=== PATIENT | female | born 1955 | race Caucasian/White ===

== ENCOUNTER 2019-03-21 17:56 | Inpatient (IN) | payer OTHER ==
[~2019-03-21] VITALS: Ht 157.5 cm; Wt 59.9 kg
[~2019-03-21 17:56] MED LIST: ESCI10TA PO; OMEG-166 PO
[2019-03-21] MEDS ORDERED: ONDANSETRON ODT 4 MG TAB.RAPDIS ONE (18:25)
[2019-03-21] MEDS ORDERED: ONDANSETRON ODT 4 MG TAB.RAPDIS SL ONE (18:30)
--- NOTE | 2019-03-21 18:33 | NUR ---
Dr Bustos at the bedside for MSE.
[2019-03-21] MEDS ORDERED: IV NORMAL SALINE 1000 ML BAG IV ONE (18:45)
[2019-03-21 18:49] LABS: BASOPHILS % (AUTO) 0.2 % (0.0-2.0); EOSINOPHILS # (AUTO) 0.2 K/uL (0.0-0.7); HEMATOCRIT 45.6 % (31.2-41.9); HEMOGLOBIN 15.3 g/dL (10.9-14.3); LYMPHOCYTES # (AUTO) 0.5 K/uL (20.0-40.0); MEAN CORPUSCULAR HEMOGLOBIN 31.7 uug (24.7-32.8); MEAN CORPUSCULAR HGB CONC 34 g/dL (32.3-35.6); MEAN CORPUSCULAR VOLUME 94.8 fL (75.5-95.3); MONOCYTES # (AUTO) 0.3 K/uL (2.0-10.0); MONOCYTES % (AUTO) 3.1 % (0.0-11.0); NEUTROPHILS # (AUTO) 7.5 K/uL (1.8-8.9); NEUTROPHILS % (AUTO) 88.7 % (38.5-71.5); PLATELET COUNT (AUTO) 210 K/uL (179-408); RED BLOOD CELL COUNT(AUTO) 4.81 MIL/uL (3.63-4.92); WHITE BLOOD COUNT (AUTO) 8.5 K/uL (3.8-11.8)
[2019-03-21 19:06] LABS: BILIRUBIN,DIRECT 0.1 mg/dL (0.0-0.2); BILIRUBIN,TOTAL 0.6 mg/dL (0.2-1.0); CREATININE 0.8 mg/dL (0.6-1.3); POTASSIUM 3.5 mmol/L (3.5-5.1); TOTAL PROTEIN, SERUM 7.5 g/dL (6.4-8.2)
--- NOTE | 2019-03-21 19:06 | NUR ---
aSSUMED CARE OF PATIENT. NO ACUTE DISTRESS NOTED. vSS
[2019-03-21] MEDS ORDERED: DICYCLOMINE HCL LIQ 10 MG/5 ML UDC ONE (19:50)
[2019-03-21 20:00] VITALS: BP 135/70
[2019-03-21] MEDS ORDERED: DICYCLOMINE HCL 20 MG TABLET PO ONE (20:00)
[2019-03-21] MEDS ORDERED: DICYCLOMINE HCL LIQ 10 MG/5 ML UDC PO ONE (20:00)
[2019-03-21] MEDS: MAGNESIUM SULFATE/D5W 100 ML IV SCH ×2 (20:32→21:37)
--- NOTE | 2019-03-21 20:47 | NUR ---
MARIANO NOVAK AT BEDSIDE FOR PATIENT EVALUATION.
[2019-03-21] MEDS ORDERED: OSELTAMIVIR PHOSPHATE 75 MG CAPSULE PO ONE (21:00)
[2019-03-21] MEDS ORDERED: IV NORMAL SALINE 100 ML BAG IV ONE (21:00)
[2019-03-21] MEDS ORDERED: ONDANSETRON 4 MG/2 ML VIAL IV ONE (21:00)
[2019-03-21] MEDS ORDERED: ACETAMINOPHEN ES 500 MG TABLET PO ONE (21:00)
[2019-03-21] MEDS ORDERED: CIPROFLOXACIN IV 400 MG in PREMIXED 1 EACH IV SCH (21:00)
[2019-03-21] MEDS ORDERED: METRONIDAZOLE 500 MG/NS 100 ML PIGGYBACK IV ONE (21:00)
[2019-03-21] MEDS ORDERED: IV NS 1000 ML 1,000 ML IV ONE (21:30)
--- NOTE | 2019-03-21 21:39 | NUR ---
Pt. admitted to [facility] , under care of Dr. HIDALGO. REPORT TO FARHEEN BANDA. IV ABX THERAPY ENDORSED TO INPATIENT UNIT. Belongs List completed
[2019-03-21 21:45] VITALS: BP 135/70
--- NOTE | 2019-03-21 21:45 | NUR ---
RECEIVED PT FROM ER VIA [facility]. UNDER THE CARE OF DR. HIDALGO. DX: DIARRHEA AND FEBRILE. ADMISSION PROCESS AND CARE PLAN INITIATED. SAFETY AND COMFORT PROVIDED. [facility] ASSESSMENT DONE. FAMILY AT BEDSIDE. WILL CONTINUE TO MONITOR.
[2019-03-21] MEDS ORDERED: METRONIDAZOLE 500 MG/NS 100ML 100 ML IV ONE (22:11)
[2019-03-21] MEDS ORDERED: HYDROCODONE/APAP 5-325MG TABLET PO PRN (22:45)
[2019-03-21] MEDS ORDERED: ONDANSETRON 4 MG/2 ML VIAL IV PRN (22:45)
[2019-03-21] MEDS ORDERED: MAGNESIUM HYDROXIDE 30 ML LIQUID UDC PO PRN (22:45)
[2019-03-21] MEDS ORDERED: ZOLPIDEM 5 MG TABLET PO PRN (22:45)
[2019-03-21] MEDS ORDERED: Z GUARD REMEDY PASTE 57 GM TUBE TOP PRN (22:45)
--- NOTE | 2019-03-21 22:45 | NUR ---
FIELD TALENT QUALIFICATION SPECIALIST ORDERED ATIVAN 1MG Q6H PRN IV PER PATIENT AND FAMILY REQUEST BECAUSE PT HAD PANIC ATTACKS . PT IN NO ACUTE DISTRESS.
[2019-03-21] MEDS: ACETAMINOPHEN 325 MG TABLET PO PRN (22:50)
[2019-03-21] MEDS: IV NS 1000 ML 1,000 ML IV PRN (22:53)
[2019-03-22] MEDS ORDERED: METRONIDAZOLE 500 MG/NS 100ML 100 ML IV ONE (02:15)
[2019-03-22 05:00] VITALS: BP 122/65
[2019-03-22] MEDS: METRONIDAZOLE 500 MG/NS 100ML 500 MG in PREMIXED 1 EACH IV SCH ×3 (05:15→22:30)
--- NOTE | 2019-03-22 05:53 | NUR ---
PT SLEPT INTERMITTENTLY. PT IN NO ACUTE DISTRESS. PRESCRIBED MEDICATION GIVEN AND PT TOLERATED IT WELL. COOLING MEASURES AND TYLENOL WAS GIVEN FOR PREVIOUS TEMPERATURE OF 100.3. DR SENIOR HEALTH PHYSICS TECHNICIAN AWARE. NOW PT AFEBRILE. SAFETY AND COMFORT PROVIDED. ALL NEEDS ARE MET. WILL ENDORSE TO INCOMING NURSE FOR CONTINUITY OF CARE.
[2019-03-22 07:11] LABS: BASOPHILS % (AUTO) 0.3 % (0.0-2.0); EOSINOPHILS # (AUTO) 0.1 K/uL (0.0-0.7); EOSINOPHILS % (AUTO) 1.2 % (0.0-7.0); HEMATOCRIT 37.6 % (31.2-41.9); HEMOGLOBIN 12.8 g/dL (10.9-14.3); LYMPHOCYTES # (AUTO) 0.5 K/uL (20.0-40.0); LYMPHOCYTES % (AUTO) 7.7 % (20.5-51.5); MEAN CORPUSCULAR HEMOGLOBIN 31.7 uug (24.7-32.8); MEAN CORPUSCULAR HGB CONC 34 g/dL (32.3-35.6); MEAN CORPUSCULAR VOLUME 93.3 fL (75.5-95.3); MONOCYTES # (AUTO) 0.6 K/uL (2.0-10.0); MONOCYTES % (AUTO) 9.1 % (0.0-11.0); NEUTROPHILS # (AUTO) 5.3 K/uL (1.8-8.9); NEUTROPHILS % (AUTO) 81.7 % (38.5-71.5); PLATELET COUNT (AUTO) 185 K/uL (179-408); RED BLOOD CELL COUNT(AUTO) 4.03 MIL/uL (3.63-4.92); WHITE BLOOD COUNT (AUTO) 6.5 K/uL (3.8-11.8)
[2019-03-22 07:23] LABS: CREATININE 0.7 mg/dL (0.6-1.3); MAGNESIUM 1.7 mg/dL (1.8-2.4); PHOSPHOROUS 3.1 mg/dL (2.5-4.9); POTASSIUM 3.4 mmol/L (3.5-5.1)
--- NOTE | 2019-03-22 07:30 | NUR ---
Patient calm and comfortable upon initial assessment; Patient with no signs of distress; patient will continue to be monitored.
[2019-03-22] MEDS: PANTOPRAZOLE SODIUM 40 MG VIAL IV SCH (08:51)
[2019-03-22] MEDS: OMEGA-3 FATTY ACIDS/FISH OIL CAPSULE PO SCH ×2 (08:51→20:39)
[2019-03-22] MEDS: ESCITALOPRAM OXALATE 10 MG TABLET PO SCH (08:51)
[2019-03-22] MEDS: CIPROFLOXACIN IV 400 MG in PREMIXED 1 EACH IV SCH ×2 (08:51→20:33)
[2019-03-22 11:47] VITALS: BP 120/85
[2019-03-22] MEDS: IV NS 1000 ML 1,000 ML IV PRN (13:18)
[2019-03-22] MEDS ORDERED: POTASSIUM CHLORIDE 20 MEQ TAB.PRT.SR PO ONE (14:30)
[2019-03-22] MEDS: MAGNESIUM SULFATE/D5W 100 ML IV SCH ×2 (15:07→17:57)
[2019-03-22 15:33] VITALS: BP 109/55
--- NOTE | 2019-03-22 18:21 | NUR ---
Patient calm and comfortable through out shift with no signs of distress; patient medication compliant ; patient could not produce stool sample ; patient notified importance of stool sample and to leave stool in hat provided; patient verbalized understanding ;patient requested iv to be replaced on hand as ac area causing pain ; iv changed . Patient educated on diagnosis ; patient verbalized understanding. Patient at family bedside.
--- NOTE | 2019-03-22 19:30 | NUR ---
RECEIVED PT AWAKE, ALERT AND ORIENTEDX4. PT IN NO ACUTE DISTRESS. IV INTACT. FAMILY AT BEDSIDE. SAFETY AND COMFORT PROVIDED. WILL CONTINUE TO MONITOR.
[2019-03-22 20:01] VITALS: BP 131/68
[2019-03-22] MEDS ORDERED: LORATADINE 10 MG TABLET PO PRN ×2 (21:00→21:15)
[2019-03-22] MEDS: LORAZEPAM 2 MG/1 ML VIAL IV PRN (22:30)
[2019-03-22] MEDS: ACETAMINOPHEN 325 MG TABLET PO PRN (22:50)
[2019-03-23] MEDS: IV NS 1000 ML 1,000 ML IV PRN ×2 (02:40→12:16)
[2019-03-23 04:07] VITALS: BP 115/64
[2019-03-23] MEDS: METRONIDAZOLE 500 MG/NS 100ML 500 MG in PREMIXED 1 EACH IV SCH ×3 (05:36→22:00)
[2019-03-23 06:29] LABS: BASOPHILS % (AUTO) 0.4 % (0.0-2.0); EOSINOPHILS # (AUTO) 0.2 K/uL (0.0-0.7); EOSINOPHILS % (AUTO) 3.2 % (0.0-7.0); HEMATOCRIT 33.8 % (31.2-41.9); HEMOGLOBIN 11.7 g/dL (10.9-14.3); LYMPHOCYTES # (AUTO) 1.9 K/uL (20.0-40.0); LYMPHOCYTES % (AUTO) 35.1 % (20.5-51.5); MEAN CORPUSCULAR HEMOGLOBIN 32.7 uug (24.7-32.8); MEAN CORPUSCULAR HGB CONC 35 g/dL (32.3-35.6); MEAN CORPUSCULAR VOLUME 94.7 fL (75.5-95.3); MONOCYTES # (AUTO) 0.6 K/uL (2.0-10.0); MONOCYTES % (AUTO) 10.9 % (0.0-11.0); NEUTROPHILS # (AUTO) 2.7 K/uL (1.8-8.9); NEUTROPHILS % (AUTO) 50.4 % (38.5-71.5); PLATELET COUNT (AUTO) 160 K/uL (179-408); RED BLOOD CELL COUNT(AUTO) 3.57 MIL/uL (3.63-4.92); WHITE BLOOD COUNT (AUTO) 5.4 K/uL (3.8-11.8)
--- NOTE | 2019-03-23 06:32 | NUR ---
ATIVAN GIVEN AT 2230H FOR PT AGITATED. PT TOLERATED IT WELL. SAFETY AND COMFORT PROVIDED. WILL CONTINUE TO MONITOR. DR. HIDALGO ORDERED CLARITIN 10MG QD PER PT REQUEST FOR ALLERGIC REACTION. PT SLEPT INTERMITTENTLY. FAMILY AT BEDSIDE. PT SHOWS NO SIGNS OF ACUTE DISTRESS. PT REQUESTING FOR STOOL SOFTENER BECAUSE SHE DIDN'T HAVE BOWEL MOVEMENT LAST NIGHT. SHE WANTS IT FOR COLLECTION OF STOOL CULTURE NEEDED. WEIGH BOSS AWARE . IV INTACT. PRESCRIBED MEDICATION GIVEN AND PT TOLERATED IT WELL. SAFETY AND COMFORT PROVIDED. WILL ENDORSE TO INCOMING NURSE FOR CONTINUITY OF CARE.
[2019-03-23 06:40] LABS: CREATININE 0.7 mg/dL (0.6-1.3); MAGNESIUM 1.9 mg/dL (1.8-2.4); POTASSIUM 3.6 mmol/L (3.5-5.1)
[2019-03-23] MEDS: ACETAMINOPHEN 325 MG TABLET PO PRN (08:35)
[2019-03-23] MEDS: OMEGA-3 FATTY ACIDS/FISH OIL CAPSULE PO SCH ×2 (08:36→20:24)
[2019-03-23] MEDS: PANTOPRAZOLE SODIUM 40 MG VIAL IV SCH (08:36)
[2019-03-23] MEDS: ESCITALOPRAM OXALATE 10 MG TABLET PO SCH (08:36)
[2019-03-23] MEDS: CIPROFLOXACIN IV 400 MG in PREMIXED 1 EACH IV SCH ×2 (08:47→20:23)
[2019-03-23 11:33] VITALS: BP 125/79
[2019-03-23 15:18] LABS: *BILIRUBIN,URIN NEGATIVE (NEGATIVE); *BLOOD, URINE 1+ (NEGATIVE); *CLARITY,URINE CLEAR (CLEAR); *COLOR,URINE YELLOW (YELLOW); *KETONES,URINE NEGATIVE (NEGATIVE); *UROBILINOGEN,URINE 0.2 E.U./dl (NORMAL); LEUKOCYTE ESTERASE ,URINE TRACE (NEGATIVE); NITRITE, URINE NEGATIVE (NEGATIVE); PH,URINE 5.5 (5.0-8.0); UGLUCOSE NEGATIVE (NEGATIVE)
[2019-03-23 15:25] LABS: MUCUS,URINE FEW /LPF (0-FEW); SQUAMOUS EPITHELIAL CELL,UR MODERATE /HPF (NONE SEEN)
[2019-03-23 15:50] VITALS: BP 133/74
--- NOTE | 2019-03-23 17:14 | NUR ---
Patient alert and oriented, ambulatory independent. Fever of 99.9 beginning of shift, PRN tylenol given which resolved fever down to 98.2. Continues on clear liquid diet. RUQ pain/discomfort, US of gallbladder ordered. Stool sample collected and sent today. Urine sent to lab. Continues on flagyl and cipro antibiotic. Continuous IV fluids. Gallbladder US pending, tech states it will be done tomorrow.
--- NOTE | 2019-03-23 19:30 | NUR ---
RECEIVED PT AWAKE, ALERT AND ORIENTEDX4. PT SHOWS NO SIGNS OF ACUTE DISTRESS. AT BEDSIDE. SAFETY AND COMFORT PROVIDED. WILL CONTINUE TO MONITOR.
[2019-03-23 20:05] VITALS: BP 168/78
[2019-03-23] MEDS: LORAZEPAM 2 MG/1 ML VIAL IV PRN (20:24)
[2019-03-23 22:30] VITALS: BP 136/78
[2019-03-24 04:00] VITALS: BP 145/68
[2019-03-24] MEDS: ACETAMINOPHEN 325 MG TABLET PO PRN ×2 (04:40→10:46)
[2019-03-24] MEDS: METRONIDAZOLE 500 MG/NS 100ML 500 MG in PREMIXED 1 EACH IV SCH ×2 (05:09→13:59)
--- NOTE | 2019-03-24 06:27 | NUR ---
PT SLEPT INTERMITTENTLY. PT IN NO ACUTE DISTRESS. IV INTACT. PRESCRIBED MEDICATION GIVEN AND PT TOLERATED IT WELL. ATIVAN GIVEN AT 2023H FOR PT BEING ANXIOUS AND ZOFRAN 2023H FOR NAUSEOUS. PT TOLERATED IT WELL.SAFETY AND COMFORT PROVIDED. WILL ENDORSE TO INCOMING NURSE FOR CONTINUITY OF CARE.
--- NOTE | 2019-03-24 06:33 | NUR ---
PT HAD 100.2 TEMP. COOLING MEASURESD AND TYLENOL GIVEN. RECENT TEMP IS 97.5. PT IN NO ACUTE DISTRESS. SAFETY PROVIDED. WILL ENDORSE.
[2019-03-24] MEDS ORDERED: PANTOPRAZOLE SODIUM 40 MG TABLET.DR PO SCH (07:00)
[2019-03-24 07:31] LABS: BILIRUBIN,TOTAL 0.4 mg/dL (0.2-1.0); CREATININE 0.8 mg/dL (0.6-1.3); MAGNESIUM 1.5 mg/dL (1.8-2.4); PHOSPHOROUS 3.4 mg/dL (2.5-4.9); POTASSIUM 3.4 mmol/L (3.5-5.1)
[2019-03-24 07:32] LABS: BASOPHILS % (AUTO) 0.3 % (0.0-2.0); EOSINOPHILS % (AUTO) 0.4 % (0.0-7.0); HEMATOCRIT 34.3 % (31.2-41.9); HEMOGLOBIN 11.8 g/dL (10.9-14.3); LYMPHOCYTES # (AUTO) 1.2 K/uL (20.0-40.0); LYMPHOCYTES % (AUTO) 13.5 % (20.5-51.5); MEAN CORPUSCULAR HEMOGLOBIN 32.6 uug (24.7-32.8); MEAN CORPUSCULAR HGB CONC 34 g/dL (32.3-35.6); MEAN CORPUSCULAR VOLUME 94.8 fL (75.5-95.3); MONOCYTES # (AUTO) 0.7 K/uL (2.0-10.0); MONOCYTES % (AUTO) 7.8 % (0.0-11.0); NEUTROPHILS # (AUTO) 7.1 K/uL (1.8-8.9); PLATELET COUNT (AUTO) 175 K/uL (179-408); RED BLOOD CELL COUNT(AUTO) 3.61 MIL/uL (3.63-4.92)
[2019-03-24 07:42] LABS: WHITE BLOOD COUNT (AUTO) 9.1 K/uL (3.8-11.8)
--- NOTE | 2019-03-24 08:00 | NUR ---
PATIENT RESTING COMFORTABLY IN BED AT THIS TIME. IVF RUNNING. WILL KEEP PATIENT NPO AT THIS TIME DUE TO GALLBLADDER ULTRASOUND ORDERED - WILL NOTIFY PATIENT. AFEBRILE AT THIS TIME. NO SIGNS OF DISTRESS. SAFETY MEASURES IMPLEMENTED, CALL LIGHT WITHIN REACH OF PATIENT. WILL CONTINUE TO MONITOR THROUGHOUT SHIFT.
[2019-03-24] MEDS: OMEGA-3 FATTY ACIDS/FISH OIL CAPSULE PO SCH (08:41)
[2019-03-24] MEDS: ESCITALOPRAM OXALATE 10 MG TABLET PO SCH (08:41)
[2019-03-24] MEDS: CIPROFLOXACIN IV 400 MG in PREMIXED 1 EACH IV SCH (08:41)
[2019-03-24] MEDS: IV NS 1000 ML 1,000 ML IV PRN (08:45)
[2019-03-24] MEDS ORDERED: POTASSIUM CHLORIDE 20 MEQ TAB.PRT.SR PO ONE (08:45)
[2019-03-24] MEDS: MAGNESIUM SULFATE/D5W 100 ML IV SCH ×2 (09:48→10:48)
[2019-03-24 10:47] VITALS: BP 150/84
[2019-03-24 11:28] VITALS: BP 134/69
[2019-03-24 15:18] VITALS: BP 115/75
--- NOTE | 2019-03-24 17:01 | NUR ---
patient discharged at this time. no signs of distress. medically stable and cleared by MD. belongings returned. ID-band taken off. discharge packet instructed to patient and signed by patient. Patient's was patient's form of transportation. discharged from hospital safely.
== END 2019-03-24 16:25 | disposition home or self-care (01) | DRG 392 ==
LOC: ER 17:57 → MEDSURG3 21:35
PROVIDERS: ADMIT Student in an Organized Health Care Education/Training Program; ATTEND Student in an Organized Health Care Education/Training Program
DX: A08.4 Viral intestinal infection, unspecified (principal); E87.1 Hypo-osmolality and hyponatremia; N39.0 Urinary tract infection, site not specified; E86.0 Dehydration; F17.210 Nicotine dependence, cigarettes, uncomplicated; F32.9 Major depressive disorder, single episode, unspecified; E83.42 Hypomagnesemia; E78.5 Hyperlipidemia, unspecified; E87.6 Hypokalemia; F41.0 Panic disorder [episodic paroxysmal anxiety]; D69.6 Thrombocytopenia, unspecified; Z79.899 Other long term (current) drug therapy; K76.89 Other specified diseases of liver; R05 Cough
CPT/HCPCS: 36415; 71045; 83605; 83690; 83735; 84100; 84443; 85025; 86625; 87046; 87086; 87400; 93005; A4663; A9150; C9113; G0378; J0744; J2060; J2405; J3475; J3490; J7030; Q0162

== ENCOUNTER 2019-05-16 00:39 | Emergency (ER) | payer OTHER ==
[~2019-05-16] VITALS: Ht 160 cm; Wt 62.1 kg
--- NOTE | 2019-05-16 00:39 | NUR ---
Safety precautions observed. Frequent visual checks done. s/r up x2.
--- NOTE | 2019-05-16 00:39 | NUR ---
Patient BIB [facility] via gurney c/o taking 3x 10mg of diazepam and some champagne [employer]. Patient responsive to painful stimuli only. Breathing even and unlabored. no SOB noted. POC glugose done at bedside at 71mg/dL. Dr. Smith made aware. pulses palpable x4 extremities. Pupils @ 3mm bilaterally. PERRLA. Skin warm and dry to touch. no visible injuries noted. at bedside. Denies any trauma. states "she was incoherent when we were about to sleep". also states patient took the pills to "sleep for a few days".
--- NOTE | 2019-05-16 00:40 | NUR ---
Dr. Smith at bedside for MSE
[2019-05-16] MEDS ORDERED: ONDANSETRON 4 MG/2 ML VIAL IV ONE (01:00)
[2019-05-16] MEDS ORDERED: DEXTROSE 50% 50 ML DISP.SYRIN IV ONE (01:00)
[2019-05-16] MEDS ORDERED: CHARCOAL/SORBITOL SOLUTION 50 GM/240 ML BOTTLE NG ONE (01:00)
[2019-05-16 01:05] LABS: BASOPHILS # (AUTO) 0.1 K/uL (0.0-8.0); EOSINOPHILS # (AUTO) 0.4 K/uL (0.0-0.7); EOSINOPHILS % (AUTO) 4.8 % (0.0-7.0); HEMATOCRIT 43.4 % (31.2-41.9); LYMPHOCYTES # (AUTO) 3.2 K/uL (20.0-40.0); LYMPHOCYTES % (AUTO) 43.3 % (20.5-51.5); MEAN CORPUSCULAR HEMOGLOBIN 32.4 uug (24.7-32.8); MEAN CORPUSCULAR HGB CONC 35 g/dL (32.3-35.6); MEAN CORPUSCULAR VOLUME 93.6 fL (75.5-95.3); MONOCYTES # (AUTO) 0.5 K/uL (2.0-10.0); MONOCYTES % (AUTO) 6.6 % (0.0-11.0); NEUTROPHILS # (AUTO) 3.3 K/uL (1.8-8.9); NEUTROPHILS % (AUTO) 44.3 % (38.5-71.5); PLATELET COUNT (AUTO) 266 K/uL (179-408); RED BLOOD CELL COUNT(AUTO) 4.64 MIL/uL (3.63-4.92); WHITE BLOOD COUNT (AUTO) 7.4 K/uL (3.8-11.8)
[2019-05-16] MEDS ORDERED: CHARCOAL/SORBITOL SOLUTION 50 GM/240 ML BOTTLE ONE (01:08)
[2019-05-16] MEDS ORDERED: ONDANSETRON 4 MG/2 ML VIAL ONE (01:08)
[2019-05-16 01:17] LABS: CARBON DIOXIDE 23 mmol/L (21-32); CHLORIDE 107 mmol/L (98-107); CREATININE 0.7 mg/dL (0.6-1.3); GLUCOSE 86 mg/dL (74-106); POTASSIUM 3.5 mmol/L (3.5-5.1); UREA NITROGEN, BLOOD 14 mg/dL (7-18)
[2019-05-16 01:28] LABS: ALANINE AMINOTRANSFERASE 27 U/L (14-59); ALKALINE PHOSPHATASE 115 U/L (50-136); ASPARTATE AMINOTRANSFERASE 17 U/L (15-37); BILIRUBIN,DIRECT 0.1 mg/dL (0.0-0.2); BILIRUBIN,TOTAL 0.1 mg/dL (0.2-1.0); TOTAL PROTEIN, SERUM 7.7 g/dL (6.4-8.2)
[2019-05-16 01:29] LABS: ACETAMINOPHEN < 2.0 ug/mL (10-30); ETHANOL 105 MG/DL (0-0)
[2019-05-16] MEDS ORDERED: IV NORMAL SALINE 1000 ML BAG IV ONE (01:30)
--- NOTE | 2019-05-16 01:50 | NUR ---
Patient responsive to name when called. able to follow simple commands. Breathing even and unlabored. Denies any SOB. Denies any pain or discomfort. NAD noted
--- NOTE | 2019-05-16 03:16 | NUR ---
Patient in bed sleeping but easily arousable. A&O x4. at bedside. Breathing even and unlabored. Denies any SOB. Able to tolerate ice chips at this time. Denies any N / V. NAD noted
--- NOTE | 2019-05-16 03:54 | NUR ---
Patient's contact info: Antonio [phone]
--- NOTE | 2019-05-16 05:13 | NUR ---
Patient has been medically cleared by Dr. Smith. Francisco jackson. ETA 30-45 mins
--- NOTE | 2019-05-16 06:09 | NUR ---
Patient AA&O x4. Able to ambulate to bathroom with minimal assistance. Denies any pain or discomfort at this time. NAD noted
--- NOTE | 2019-05-16 06:21 | NUR ---
Francisco Trevino at bedside to evaluate patient
--- NOTE | 2019-05-16 07:04 | NUR ---
Patient has been cleared by Francisco Trevino. IV removed. Catheter intact and site benign. Pressure and 4x4 gauze applied to site. No bleeding noted. Patient discharged to home in stable conditon. Written and verbal after care instructions given. Patient verbalizes understanding of instructions. Patient ambulating with steady gait
[2019-05-16 07:09] VITALS: BP 114/73
== END 2019-05-16 07:04 | disposition home or self-care (01) ==
LOC: ER 00:41
DX: T42.4X2A Poisoning by benzodiazepines, intentional self-harm, initial encounter (principal); F32.9 Major depressive disorder, single episode, unspecified; F41.9 Anxiety disorder, unspecified; F17.200 Nicotine dependence, unspecified, uncomplicated; F10.129 Alcohol abuse with intoxication, unspecified; Z90.49 Acquired absence of other specified parts of digestive tract; Z88.1 Allergy status to other antibiotic agents; Z88.0 Allergy status to penicillin; Z88.8 Allergy status to other drugs, medicaments and biological substances; Y92.89 Other specified places as the place of occurrence of the external cause
CPT/HCPCS: 36415; 71045; 80048; 80076; 84443; 84484; 85025; 85730; 93005; 96374; 99285; G0480 ×2; G0481; J2405; 70030-TC; A4663; J7030